=== PATIENT | female | born 1960 | race Caucasian/White ===

== ENCOUNTER 2017-10-17 17:44 | Inpatient (IN) | payer BC ==
[~2017-10-17] VITALS: Ht 152.4 cm; Wt 53.2 kg
[~2017-10-17 17:44] MED LIST: AMLO5TAB2 PO; CALC0.5C9 PO; CALC667C PO; DOLU1TAB PO; EMTR200C4 PO; FERR325T18 PO; LISI5TAB7 PO; METO25TA91 PO; METOPROLOL PO
[2017-10-17 19:50] LABS: MEAN CORPUSCULAR HEMOGLOBIN 32.6 pg (27.0-34.8); MEAN CORPUSCULAR HGB CONC 34.4 g/dL (32.4-35.8); MEAN CORPUSCULAR VOLUME 94.8 fL (80-100); MEAN PLATELET VOLUME 8.6 fL (7.4-10.4); PLATELET COUNT 253 x10^3/uL (130-400); RED BLOOD COUNT 3.52 x10^6/uL (3.82-5.3); RED CELL DISTRIBUTION WIDTH 15.5 % (9.6-15.2)
[2017-10-17 20:00] LABS: ALANINE AMINOTRANSFERASE 15 U/L (12-78); ALBUMIN 3.1 g/dL (3.4-5.0); ANION GAP 15 mmol/L (5-15); CALCIUM 9.1 mg/dL (8.5-10.1); CHLORIDE 91 mmol/L (98-107)
[2017-10-17 20:02] LABS: ALKALINE PHOSPHATASE 98 U/L (45-117); BILIRUBIN,TOTAL 0.3 mg/dL (0.2-1.0); TOTAL PROTEIN 9.1 g/dL (6.4-8.2)
[2017-10-17 20:08] LABS: BASOPHILS % (AUTO) 0 % (0-1); EOSINOPHILS # (AUTO) 0.03 x10^3/uL (0-0.4); EOSINOPHILS % (AUTO) 0 % (1-7); LYMPHOCYTES # (AUTO) 1.19 x10^3/uL (1-3.4); LYMPHOCYTES % (AUTO) 5 % (22-44); MD SCAN; MONOCYTES # (AUTO) 0.18 x10^3/uL (0.2-0.8); MONOCYTES % (AUTO) 1 % (2-9); NEUTROPHILS # (AUTO) 22.96 x10^3/uL (1.8-6.8); NEUTROPHILS % (AUTO) 94 % (42-75)
[2017-10-17] MEDS ORDERED: CIPROFLOXACIN/PMX 400MG/200ML 200 ML ONE (21:22)
[2017-10-17] MEDS ORDERED: METRONIDAZOLE PMX 500MG/100ML 100 ML ONE (21:22)
[2017-10-17] MEDS ORDERED: HYDROmorphone 2 MG/ML, 1ML ONE (21:22)
[2017-10-17] MEDS ORDERED: CIPROFLOXACIN/PMX 400MG/200ML 200 ML IV ONE (21:30)
[2017-10-17] MEDS ORDERED: HYDROmorphone 1 MG/ML, 1ML IVPush PRN (21:30)
[2017-10-17] MEDS ORDERED: METRONIDAZOLE PMX 500MG/100ML 100 ML IV ONE (21:30)
[2017-10-17] MEDS ORDERED: CALC200T3 PO (21:38)
[2017-10-17] MEDS ORDERED: SODIUM CHLORIDE 0.9% 1,000ML IVBOLUS ONE (22:30)
[2017-10-17] MEDS ORDERED: PIPERACILLIN/TAZO/PMX 3.375GM 50 ML IV SCH (23:30)
[2017-10-18] MEDS ORDERED: ONDANSETRON ODT 4 MG PO PRN (00:30)
[2017-10-18] MEDS ORDERED: POLYETHYLENE GLYCOL 17 GM PACKET PO PRN (00:30)
[2017-10-18] MEDS ORDERED: OXYcodone IR 5MG TABLET PO PRN (00:30)
[2017-10-18] MEDS ORDERED: BISACODYL 10 MG SUPP PR PRN (00:30)
[2017-10-18] MEDS ORDERED: ONDANSETRON 2MG/ML, 2ML IVPush PRN (00:30)
[2017-10-18] MEDS ORDERED: DOCUSATE 100 MG CAPSULE PO PRN (00:30)
[2017-10-18] MEDS ORDERED: hydrALAzine 20 MG/ML, 1ML IVPush PRN (00:30)
[2017-10-18] MEDS ORDERED: morphine SULFATE 10 MG/ML, 1ML IVPush PRN (00:30)
[2017-10-18 00:47] LABS: FREE T4 (FREE THYROXINE) 1.4 ng/dL (0.76-1.46); THYROID STIMULATING HORMONE 1.83 mIU/L (0.358-3.740)
[2017-10-18 00:48] LABS: HEMOGLOBIN A1C 5.7 % (4.2-6.3)
[2017-10-18] MEDS: HEPARIN 5,000 UNITS/ML, 1ML SQ SCH ×4 (01:23→19:42)
[2017-10-18] MEDS: ACETAMINOPHEN 325 MG TABLET PO PRN ×4 (01:23→23:35)
[2017-10-18] MEDS: PIPERACILLIN/TAZO 2.25 GM in SODIUM CHLORIDE 0.9% 50 ML IV SCH ×4 (01:23→19:38)
[2017-10-18] MEDS: CALCIUM CARBONATE 500 MG TAB.CHEW PO SCH ×4 (01:24→15:26)
[2017-10-18 01:37] VITALS: BP 141/67
[2017-10-18 02:10] VITALS: BP 128/66
[2017-10-18] MEDS ORDERED: CALCIUM CARBONATE 500 MG TAB.CHEW PO ONE ×2 (02:30)
[2017-10-18 04:20] LABS: MEAN CORPUSCULAR HEMOGLOBIN 31.9 pg (27.0-34.8); MEAN CORPUSCULAR HGB CONC 33.7 g/dL (32.4-35.8); MEAN CORPUSCULAR VOLUME 94.7 fL (80-100); MEAN PLATELET VOLUME 8.5 fL (7.4-10.4); PLATELET COUNT 235 x10^3/uL (130-400); RED BLOOD COUNT 3.28 x10^6/uL (3.82-5.3); RED CELL DISTRIBUTION WIDTH 15.8 % (9.6-15.2)
[2017-10-18 04:27] LABS: CHLORIDE 93 mmol/L (98-107)
[2017-10-18 04:33] LABS: ALANINE AMINOTRANSFERASE 16 U/L (12-78); ALBUMIN 2.5 g/dL (3.4-5.0); ALKALINE PHOSPHATASE 82 U/L (45-117); ANION GAP 14 mmol/L (5-15); BILIRUBIN,TOTAL 0.5 mg/dL (0.2-1.0); CALCIUM 8.5 mg/dL (8.5-10.1); CHOL/HDL RATIO 3.2; CHOLESTEROL, TOTAL 130 mg/dL (140-239); HDL CHOL % 32 % (28-40); HDL CHOLESTEROL (DIRECT) 41 mg/dL (40-60); TOTAL PROTEIN 7.7 g/dL (6.4-8.2); TRIGLYCERIDES 116 mg/dL (50-200); VLDL CHOLESTEROL 23 mg/dL (0-25)
[2017-10-18 04:34] LABS: LDL CHOLESTEROL,CALCULATED 66 mg/dL (54-169); LDL/HDL RATIO 1.6 (0.5-3.0); MD YES
[2017-10-18 04:36] LABS: ANISOCYTOSIS 1+; BAND#(MANUAL) 0.37 x10^3/uL; BANDS%(MANUAL) 2 % (0-7); LYMPH#(MANUAL) 1.84 x10^3/uL (1-3.4); LYMPHS% (MANUAL) 10 % (22-44); MONOS#(MANUAL) 0.92 x10^3/uL (0.3-2.7); MONOS% (MANUAL) 5 % (2-9); SEG#(MANUAL) 15.27 x10^3/uL (1.8-6.8); SEGS% (MANUAL) 83 % (42-75)
[2017-10-18 04:37] LABS: <PLATELET ESTIMATE> ADEQUATE; <PLT MORPHOLOGY> NORMAL PLT MORPH
[2017-10-18 06:50] VITALS: BP 117/61
[2017-10-18] MEDS ORDERED: CALCIUM CARBONATE 500 MG TAB.CHEW PO/NG PRN (07:30)
[2017-10-18] MEDS: DOLUTEGRAVIR HOMEMEDPO SCH (08:22)
[2017-10-18] MEDS: RILPIVIRINE HOMEMEDPO SCH (08:22)
[2017-10-18] MEDS ORDERED: EMTRICITABINE 200 MG CAPSULE PO SCH (09:00)
[2017-10-18 10:56] LABS: MICROSCOPIC INDICATED
[2017-10-18 11:40] LABS: CULTURE INDICATED? NO
[2017-10-18 12:38] VITALS: BP 99/60
[2017-10-18 18:50] VITALS: BP 140/79
[2017-10-19] MEDS: PIPERACILLIN/TAZO 2.25 GM in SODIUM CHLORIDE 0.9% 50 ML IV SCH ×3 (01:27→17:40)
[2017-10-19 01:41] VITALS: BP 109/58
[2017-10-19] MEDS: HEPARIN 5,000 UNITS/ML, 1ML SQ SCH ×3 (03:37→20:39)
[2017-10-19] MEDS: ACETAMINOPHEN 325 MG TABLET PO PRN ×5 (03:37→20:39)
[2017-10-19 04:43] LABS: BASOPHILS # (AUTO) 0.01 x10^3/uL (0-0.1); BASOPHILS % (AUTO) 0 % (0-1); CHLORIDE 100 mmol/L (98-107); EOSINOPHILS % (AUTO) 1 % (1-7); LYMPHOCYTES # (AUTO) 1.33 x10^3/uL (1-3.4); LYMPHOCYTES % (AUTO) 9 % (22-44); MD NO; MEAN CORPUSCULAR HGB CONC 33.5 g/dL (32.4-35.8); MEAN CORPUSCULAR VOLUME 95.5 fL (80-100); MEAN PLATELET VOLUME 8.3 fL (7.4-10.4); MONOCYTES # (AUTO) 1.23 x10^3/uL (0.2-0.8); MONOCYTES % (AUTO) 8 % (2-9); NEUTROPHILS % (AUTO) 83 % (42-75); PLATELET COUNT 227 x10^3/uL (130-400); RED CELL DISTRIBUTION WIDTH 15.4 % (9.6-15.2)
[2017-10-19 04:51] LABS: ALANINE AMINOTRANSFERASE 11 U/L (12-78); ALBUMIN 2.4 g/dL (3.4-5.0); ALKALINE PHOSPHATASE 85 U/L (45-117); ANION GAP 10 mmol/L (5-15); BILIRUBIN,TOTAL 0.5 mg/dL (0.2-1.0); CALCIUM 8.4 mg/dL (8.5-10.1); CREATININE 7.08 mg/dL (0.55-1.02); TOTAL PROTEIN 7.4 g/dL (6.4-8.2)
[2017-10-19 06:45] VITALS: BP 140/81
[2017-10-19] MEDS: CALCIUM CARBONATE 500 MG TAB.CHEW PO SCH ×2 (08:12→17:40)
[2017-10-19] MEDS: DOLUTEGRAVIR HOMEMEDPO SCH (09:00)
[2017-10-19] MEDS ORDERED: EMTRICITABINE 200 MG CAPSULE PO SCH (09:00)
[2017-10-19] MEDS: RILPIVIRINE HOMEMEDPO SCH (09:00)
[2017-10-19 13:09] VITALS: BP 125/73
[2017-10-19 19:10] VITALS: BP 122/69
[2017-10-20] MEDS: ACETAMINOPHEN 325 MG TABLET PO PRN ×3 (00:16→12:20)
[2017-10-20] MEDS: PIPERACILLIN/TAZO 2.25 GM in SODIUM CHLORIDE 0.9% 50 ML IV SCH ×2 (00:17→06:06)
[2017-10-20 01:35] VITALS: BP 123/71
[2017-10-20] MEDS: HEPARIN 5,000 UNITS/ML, 1ML SQ SCH ×2 (04:45→12:28)
[2017-10-20 04:49] LABS: ALBUMIN 2.3 g/dL (3.4-5.0); ANION GAP 9 mmol/L (5-15); CALCIUM 8.8 mg/dL (8.5-10.1); CHLORIDE 98 mmol/L (98-107)
[2017-10-20 04:52] LABS: ALANINE AMINOTRANSFERASE 14 U/L (12-78); ALKALINE PHOSPHATASE 95 U/L (45-117); BILIRUBIN,TOTAL 0.3 mg/dL (0.2-1.0); CREATININE 3.94 mg/dL (0.55-1.02); TOTAL PROTEIN 7.7 g/dL (6.4-8.2)
[2017-10-20 07:07] VITALS: BP 123/76
[2017-10-20] MEDS: DOLUTEGRAVIR HOMEMEDPO SCH (08:20)
[2017-10-20] MEDS: RILPIVIRINE HOMEMEDPO SCH (08:20)
[2017-10-20] MEDS: CALCIUM CARBONATE 500 MG TAB.CHEW PO SCH ×2 (08:21→12:28)
[2017-10-20] MEDS ORDERED: ARANESP 60 MCG/ML **ESRD SQ SCH (10:00)
[2017-10-20] MEDS ORDERED: PIPERACILLIN/TAZO 2.25 GM in SODIUM CHLORIDE 0.9% 50 ML IV SCH (15:00)
[2017-10-20] MEDS ORDERED: CEFD300C37 PO (15:30)
[2017-10-20] MEDS ORDERED: ACET-1600 PO (15:30)
[2017-10-20] MEDS ORDERED: METR500T8 PO (15:30)
== END 2017-10-20 17:00 | disposition home or self-care (01) | DRG 871 ==
LOC: ED 21:06 → EDIP 21:20 → 3NW 10-18 00:22
PROVIDERS: ADMIT Internal Medicine; ATTEND Internal Medicine
PROC: 5A1D70Z Performance of Urinary Filtration, Intermittent, Less than 6 Hours Per Day (ICD-10-PCS; principal; 2017-10-18)
PROC: 5A1D70Z Performance of Urinary Filtration, Intermittent, Less than 6 Hours Per Day (ICD-10-PCS; 2017-10-19)
DX: A41.9 Sepsis, unspecified organism (principal); N18.6 End stage renal disease; K57.20 Diverticulitis of large intestine with perforation and abscess without bleeding; E87.1 Hypo-osmolality and hyponatremia; I13.2 Hypertensive heart and chronic kidney disease with heart failure and with stage 5 chronic kidney disease, or end stage renal disease; E44.0 Moderate protein-calorie malnutrition; I50.42 Chronic combined systolic (congestive) and diastolic (congestive) heart failure; Z99.2 Dependence on renal dialysis; D63.8 Anemia in other chronic diseases classified elsewhere; I27.20 Pulmonary hypertension, unspecified; Z68.22 Body mass index [BMI] 22.0-22.9, adult; Z98.891 History of uterine scar from previous surgery
CPT/HCPCS: 36415; 74176; 80053; 80061; 81001; 83036; 83605; 83690; 83735; 84100; 84439; 84443; 84550; 85025; 86704; 86706; 87040; 87340; 99285; J0744; J0882; J1170; J1644; J2405; J2543; J7030

== ENCOUNTER 2017-12-06 05:25 | Day surgery (SDC) | payer BC ==
[~2017-12-06] VITALS: Ht 154.9 cm; Wt 53.5 kg
[~2017-12-06 05:25] MED LIST changes: +ACET-1600 PO; +CALC200T3 PO; +CEFD300C37 PO; +METR500T8 PO
[2017-12-06] MEDS ORDERED: SODIUM CHLORIDE 0.9% 1,000 ML IV SCH (06:00)
[2017-12-06 06:01] VITALS: BP 183/105
[2017-12-06] MEDS ORDERED: BUPIVACAINE/PF-EPI 0.5% 1:200K ONE (06:48)
[2017-12-06] MEDS ORDERED: PROTAMINE SULFATE 10 MG/ML, 5ML ONE (06:48)
[2017-12-06] MEDS ORDERED: THROMBIN 5,000 UNIT VIAL TP ONE (06:49)
[2017-12-06] MEDS ORDERED: HEPARIN 1,000 UNITS/ML, 10ML ONE (06:49)
[2017-12-06] MEDS ORDERED: EPHEDRINE 50 MG/ML, 1ML ONE (07:15)
[2017-12-06] MEDS ORDERED: PHENYLEPHRINE 10 MG/ML ONE (07:15)
[2017-12-06] MEDS ORDERED: ONDANSETRON 2MG/ML, 2ML ONE (07:15)
[2017-12-06] MEDS ORDERED: METOCLOPRAMIDE 5 MG/ML, 2ML ONE (07:15)
[2017-12-06] MEDS ORDERED: DEXAMETHASONE 4 MG/ML, 1ML ONE (07:15)
[2017-12-06] MEDS ORDERED: PROPOFOL 10 MG/ML, 20ML ONE ×3 (07:15)
[2017-12-06] MEDS ORDERED: LIDOCAINE-MPF 2% ,5ML ONE (07:16)
[2017-12-06] MEDS ORDERED: MIDAZOLAM 1 MG/ML, 2ML ONE (07:17)
[2017-12-06] MEDS ORDERED: FENTANYL PF 100 MCG/2ML ONE ×2 (07:18→08:55)
[2017-12-06] MEDS ORDERED: CEFAZOLIN 1,000 MG ONE (07:50)
[2017-12-06] MEDS ORDERED: FENTANYL PF 100 MCG/2ML IV PRN (08:30)
[2017-12-06] MEDS ORDERED: MIDAZOLAM 1 MG/ML, 2ML IV PRN (08:30)
[2017-12-06] MEDS ORDERED: LABETALOL 5MG/ML, 20ML IV PRN (08:30)
[2017-12-06] MEDS ORDERED: ONDANSETRON 2MG/ML, 2ML IVPush PRN (08:30)
[2017-12-06] MEDS ORDERED: HYDROmorphone 1 MG/ML, 1ML IV PRN (08:30)
[2017-12-06] MEDS ORDERED: MEPERIDINE/PF 25MG/0.5ML IVPush PRN (08:30)
[2017-12-06] MEDS ORDERED: OXYcodone 5 MG/5 ML ORAL.SOL UDC PO PRN (08:30)
[2017-12-06] MEDS ORDERED: OXYcodone 5 MG/5 ML ORAL.SOL UDC ONE (08:55)
[2017-12-06] MEDS ORDERED: PROTAMINE SULFATE 10 MG/ML, 5ML IVPush STA (12:34)
[2017-12-06] MEDS ORDERED: HYDROcodone/APAP 5/325 TABLET ONE (12:38)
[2017-12-06] MEDS ORDERED: HYDROcodone/APAP 5/325 TABLET PO ONE (13:00)
== END 2017-12-06 15:07 | disposition home or self-care (01) ==
LOC: OUT 05:25
PROVIDERS: ATTEND Surgery Vascular Surgery
DX: I12.0 Hypertensive chronic kidney disease with stage 5 chronic kidney disease or end stage renal disease (principal); N18.6 End stage renal disease; J44.9 Chronic obstructive pulmonary disease, unspecified; I50.9 Heart failure, unspecified; Z88.8 Allergy status to other drugs, medicaments and biological substances; Z79.899 Other long term (current) drug therapy
CPT/HCPCS: 36415; 36821; 80047; J0690; J1100; J1644; J2250; J2370; J2405; J2704; J2720; J2765; J3010; J3490; J7030

== ENCOUNTER → 2018-01-24 | Outpatient (CLI) | payer BC ==
[~2018-01-24] VITALS: Ht 154.9 cm; Wt 55.4 kg
[~2018-01-24] MED LIST changes: -AMLO5TAB2 PO; +AMLO5TAB7 PO; +HEPARIN 1,000 UNITS/ML, 30ML ONE; +LANT1000 PO; +PATI8.4P PO; +PROTAMINE SULFATE 10 MG/ML, 5ML ONE
[2018-01-24 10:34] LABS: INTERNATIONAL NORMALIZED RATIO 0.94 (0.93-1.1); PROTHROMBIN TIME 9.8 Seconds (9.6-11.5)
== END | disposition home or self-care (01) ==
LOC: CLISVCS 09:37 → OUT 09:37 → EDSTATUS 14:00
PROVIDERS: ATTEND Surgery Vascular Surgery
DX: N18.6 End stage renal disease (principal); Z53.9 Procedure and treatment not carried out, unspecified reason
CPT/HCPCS: 36415; 80047; 85610; 85730; 93005; J1644; J2720

== ENCOUNTER → 2018-02-07 | Outpatient (CLI) | payer BC ==
[~2018-02-07] MED LIST changes: +FENTANYL PF 100 MCG/2ML ONE; -HEPARIN 1,000 UNITS/ML, 30ML ONE; +MIDAZOLAM 1 MG/ML, 2ML ONE; -PROTAMINE SULFATE 10 MG/ML, 5ML ONE
== END | disposition home or self-care (01) ==
LOC: CLISVCS 08:00 → EDSTATUS 12:15
PROVIDERS: ATTEND Surgery Vascular Surgery
DX: Z02.9 Encounter for administrative examinations, unspecified (principal)
CPT/HCPCS: J2250; J3010

== ENCOUNTER 2018-03-14 08:33 | Day surgery (SDC) | payer BC ==
[~2018-03-14] VITALS: Ht 152.4 cm; Wt 61.0 kg
[~2018-03-14 08:33] MED LIST changes: -FENTANYL PF 100 MCG/2ML ONE; -MIDAZOLAM 1 MG/ML, 2ML ONE
[2018-03-14 10:44] VITALS: BP 175/81
[2018-03-14] MEDS ORDERED: SODIUM CHLORIDE 0.9% 1,000 ML IV SCH (11:21)
[2018-03-14] MEDS ORDERED: HEPARIN 5,000 UNITS/ML, 1ML ONE (12:55)
[2018-03-14] MEDS ORDERED: HEPARIN 1,000 UNITS/ML, 10ML ONE (12:56)
[2018-03-14] MEDS ORDERED: PROTAMINE SULFATE 10 MG/ML, 5ML ONE (12:56)
[2018-03-14] MEDS ORDERED: MIDAZOLAM 1 MG/ML, 2ML ONE (13:00)
[2018-03-14] MEDS ORDERED: FENTANYL PF 100 MCG/2ML ONE ×3 (13:00→14:17)
[2018-03-14] MEDS ORDERED: LIDOCAINE 2% 100MG/5ML SYRINGE ONE (13:44)
[2018-03-14] MEDS ORDERED: CEFAZOLIN 1,000 MG ONE (13:44)
[2018-03-14] MEDS ORDERED: PROPOFOL 10 MG/ML, 20ML ONE (13:44)
[2018-03-14] MEDS ORDERED: ONDANSETRON 2MG/ML, 2ML ONE (13:44)
[2018-03-14] MEDS ORDERED: DEXAMETHASONE 4 MG/ML, 1ML ONE (13:44)
[2018-03-14] MEDS ORDERED: MEPERIDINE/PF 25MG/0.5ML IVPush PRN (14:00)
[2018-03-14] MEDS ORDERED: HYDROmorphone 1 MG/ML, 1ML IV PRN (14:00)
[2018-03-14] MEDS ORDERED: HALOPERIDOL 5 MG/ML IV PRN (14:00)
[2018-03-14] MEDS ORDERED: ACETAMINOPHEN 325 MG TABLET PO PRN (14:00)
[2018-03-14] MEDS ORDERED: LABETALOL 5MG/ML, 20ML IV PRN (14:00)
[2018-03-14] MEDS ORDERED: hydrALAzine 20 MG/ML, 1ML IV PRN (14:00)
[2018-03-14] MEDS ORDERED: OXYcodone 5 MG/5 ML ORAL.SOL UDC ONE ×2 (14:17→14:49)
[2018-03-14] MEDS ORDERED: ACETAMINOPHEN 650 MG/20.3 ML UDC ONE (14:17)
[2018-03-14] MEDS: OXYcodone 5 MG/5 ML ORAL.SOL UDC PO PRN ×2 (14:20→14:50)
[2018-03-14] MEDS: FENTANYL PF 100 MCG/2ML IV PRN ×3 (14:23→14:42)
[2018-03-14] MEDS ORDERED: HYDROmorphone 2 MG/ML, 1ML ONE (14:48)
== END 2018-03-14 18:20 | disposition home or self-care (01) ==
LOC: OUT 08:33
PROVIDERS: ATTEND Surgery Vascular Surgery
DX: I13.2 Hypertensive heart and chronic kidney disease with heart failure and with stage 5 chronic kidney disease, or end stage renal disease (principal); I50.9 Heart failure, unspecified; N18.6 End stage renal disease; B20 Human immunodeficiency virus [HIV] disease; Z88.1 Allergy status to other antibiotic agents; Z88.5 Allergy status to narcotic agent; Z88.8 Allergy status to other drugs, medicaments and biological substances
CPT/HCPCS: 36415; 36821; 80047; J0690; J1100; J1170; J1644; J2405; J2704; J2720; J3010; J7030

== ENCOUNTER 2018-07-11 05:47 | Day surgery (SDC) | payer BC ==
[~2018-07-11] VITALS: Ht 152.4 cm; Wt 68.5 kg
[~2018-07-11 05:47] MED LIST changes: +AMLO-150 PO; -AMLO5TAB7 PO; +METR-90 PO; -METR500T8 PO
[2018-07-11 06:07] VITALS: BP 169/97
[2018-07-11] MEDS ORDERED: SODIUM CHLORIDE 0.9% 1,000 ML IV SCH (06:10)
[2018-07-11] MEDS ORDERED: BUPIVACAINE/PF 0.5% ONE (07:03)
[2018-07-11] MEDS ORDERED: THROMBIN 5,000 UNIT VIAL TP ONE (07:03)
[2018-07-11] MEDS ORDERED: HEPARIN 1,000 UNITS/ML, 10ML ONE (07:03)
[2018-07-11] MEDS ORDERED: PROTAMINE SULFATE 10 MG/ML, 5ML ONE (07:03)
[2018-07-11] MEDS ORDERED: PROMETHAZINE 25 MG/ML, 1ML IV PRN (08:00)
[2018-07-11] MEDS ORDERED: MEPERIDINE/PF 25MG/0.5ML IVPush PRN (08:00)
[2018-07-11] MEDS ORDERED: LABETALOL 5MG/ML, 20ML IV PRN (08:00)
[2018-07-11] MEDS ORDERED: HALOPERIDOL 5 MG/ML IV PRN (08:00)
[2018-07-11] MEDS ORDERED: METOPROLOL 1 MG/ML, 5ML IV PRN (08:00)
[2018-07-11] MEDS ORDERED: hydrALAzine 20 MG/ML, 1ML IV PRN (08:00)
[2018-07-11] MEDS ORDERED: PROCHLORPERAZINE 5 MG/ML, 2ML IV PRN (08:00)
[2018-07-11] MEDS ORDERED: DIPHENHYDRAMINE 50 MG/ML, 1ML IVPush PRN (08:00)
[2018-07-11] MEDS ORDERED: FENTANYL PF 100 MCG/2ML IV PRN (08:00)
[2018-07-11] MEDS ORDERED: CEFAZOLIN 1,000 MG ONE (08:28)
[2018-07-11] MEDS ORDERED: DEXAMETHASONE 4 MG/ML, 1ML ONE (08:28)
[2018-07-11] MEDS ORDERED: ONDANSETRON 2MG/ML, 2ML ONE (08:28)
[2018-07-11] MEDS ORDERED: PROPOFOL 10 MG/ML, 20ML ONE (08:28)
[2018-07-11] MEDS ORDERED: FENTANYL PF 100 MCG/2ML ONE (08:29)
[2018-07-11] MEDS ORDERED: HEPARIN 1,000 UNITS/ML, 10ML DIALYCATH ONE (08:54)
[2018-07-11] MEDS ORDERED: HYDROmorphone 1 MG/ML, 1ML ONE (09:34)
[2018-07-11] MEDS: HYDROmorphone 2 MG/ML, 1ML IVPush PRN ×3 (09:37→09:59)
[2018-07-11] MEDS ORDERED: MEPERIDINE/PF 25MG/ML,1ML ONE (10:05)
[2018-07-11] MEDS ORDERED: HYDROmorphone 2MG TABLET PO ONE (12:30)
[2018-07-11] MEDS ORDERED: HYDROmorphone 2MG TABLET ONE (12:33)
[2018-07-11] MEDS ORDERED: PROTAMINE SULFATE 10 MG/ML, 5ML IVPush ONE (13:00)
== END 2018-07-11 14:35 | disposition home or self-care (01) ==
LOC: OUT 05:47
PROVIDERS: ATTEND Surgery Vascular Surgery
DX: I13.2 Hypertensive heart and chronic kidney disease with heart failure and with stage 5 chronic kidney disease, or end stage renal disease (principal); I50.9 Heart failure, unspecified; N18.6 End stage renal disease; Z88.5 Allergy status to narcotic agent; Z88.8 Allergy status to other drugs, medicaments and biological substances
CPT/HCPCS: 36415; 36821; 80047; J0690; J1100; J1170; J1644; J2175; J2405; J2704; J2720; J3010; J7030; J3490

== ENCOUNTER 2018-12-12 08:50 | Day surgery (SDC) | payer BC, MEDICARE ==
[~2018-12-12] VITALS: Ht 152.4 cm; Wt 70.4 kg
[2018-12-12] MEDS ORDERED: SODIUM CHLORIDE 0.9% 1,000 ML IV SCH (10:38)
[2018-12-12 10:50] VITALS: BP 200/82
[2018-12-12] MEDS ORDERED: FENTANYL PF 100 MCG/2ML ONE ×2 (11:58→13:02)
[2018-12-12] MEDS ORDERED: PROMETHAZINE 25 MG/ML, 1ML IV PRN (12:00)
[2018-12-12] MEDS ORDERED: HALOPERIDOL 5 MG/ML IV PRN (12:00)
[2018-12-12] MEDS ORDERED: hydrALAzine 20 MG/ML, 1ML IV PRN (12:00)
[2018-12-12] MEDS ORDERED: LABETALOL 5MG/ML, 20ML IV PRN (12:00)
[2018-12-12] MEDS ORDERED: HYDROmorphone 2 MG/ML, 1ML IVPush PRN (12:00)
[2018-12-12] MEDS ORDERED: OXYcodone 5 MG/5 ML ORAL.SOL UDC PO PRN (12:00)
[2018-12-12] MEDS ORDERED: METOPROLOL 1 MG/ML, 5ML IV PRN (12:00)
[2018-12-12] MEDS ORDERED: PROCHLORPERAZINE 5 MG/ML, 2ML IV PRN (12:00)
[2018-12-12] MEDS ORDERED: MEPERIDINE/PF 25MG/0.5ML IVPush PRN (12:00)
[2018-12-12] MEDS ORDERED: DIPHENHYDRAMINE 50 MG/ML, 1ML IVPush PRN (12:00)
[2018-12-12] MEDS ORDERED: PROPOFOL 10 MG/ML, 20ML ONE (12:08)
[2018-12-12] MEDS ORDERED: DEXAMETHASONE 4 MG/ML, 1ML ONE (12:08)
[2018-12-12] MEDS ORDERED: ONDANSETRON 2MG/ML, 2ML ONE (12:08)
[2018-12-12] MEDS ORDERED: CEFAZOLIN 1,000 MG ONE (12:08)
[2018-12-12] MEDS: FENTANYL PF 100 MCG/2ML IV PRN ×2 (13:04→13:19)
[2018-12-12 13:25] LABS: INTERNATIONAL NORMALIZED RATIO 0.92 (0.93-1.1); PROTHROMBIN TIME 9.7 Seconds (9.6-11.5)
[2018-12-12 13:26] LABS: BASOPHILS # (AUTO) 0.04 x10^3/uL (0-0.1); BASOPHILS % (AUTO) 1 % (0-1); EOSINOPHILS # (AUTO) 0.19 x10^3/uL (0-0.4); EOSINOPHILS % (AUTO) 3 % (1-7); LYMPHOCYTES # (AUTO) 1.85 x10^3/uL (1-3.4); LYMPHOCYTES % (AUTO) 23 % (22-44); MD NO; MEAN CORPUSCULAR HEMOGLOBIN 33.5 pg (27.0-34.8); MEAN CORPUSCULAR HGB CONC 32.9 g/dL (32.4-35.8); MEAN CORPUSCULAR VOLUME 101.8 fL (80-100); MONOCYTES # (AUTO) 0.39 x10^3/uL (0.2-0.8); MONOCYTES % (AUTO) 5 % (2-9); NEUTROPHILS # (AUTO) 5.41 x10^3/uL (1.8-6.8); NEUTROPHILS % (AUTO) 69 % (42-75); PLATELET COUNT 159 x10^3/uL (130-400); RED CELL DISTRIBUTION WIDTH 13.4 % (9.6-15.2)
== END 2018-12-12 16:20 | disposition home or self-care (01) ==
LOC: OUT 08:50
PROVIDERS: ATTEND Surgery Vascular Surgery
DX: T82.590A Other mechanical complication of surgically created arteriovenous fistula, initial encounter (principal); I13.2 Hypertensive heart and chronic kidney disease with heart failure and with stage 5 chronic kidney disease, or end stage renal disease; N18.6 End stage renal disease; I50.9 Heart failure, unspecified; Z88.5 Allergy status to narcotic agent; Z88.8 Allergy status to other drugs, medicaments and biological substances; Y84.8 Other medical procedures as the cause of abnormal reaction of the patient, or of later complication, without mention of misadventure at the time of the procedure
CPT/HCPCS: 36415; 36832; 80047; 85025; 85610; 85730; 93005; J0690; J1100; J2405; J2704; J3010

== ENCOUNTER → 2020-07-03 | Outpatient (CLI) | payer MEDICARE, BC ==
[~2020-07-03] MED LIST changes: +CINA30TA2 PO; +METO25TA35 PO
[2020-07-03 16:21] LABS: BASOPHILS % (AUTO) 1 % (0-1); EOSINOPHILS % (AUTO) 2 % (1-7); LYMPHOCYTES % (AUTO) 20 % (22-44); MEAN CORPUSCULAR HEMOGLOBIN 32.7 pg (27.0-34.8); MEAN CORPUSCULAR HGB CONC 33.1 g/dL (32.4-35.8); MEAN PLATELET VOLUME 8.8 fL (7.4-10.4); MONOCYTES % (AUTO) 9 % (2-9); NEUTROPHILS % (AUTO) 69 % (42-75); PLATELET COUNT 227 x10^3/uL (130-400); RED BLOOD COUNT 4.11 x10^6/uL (3.82-5.3); RED CELL DISTRIBUTION WIDTH 15.6 % (9.6-15.2)
[2020-07-03 16:22] LABS: MD NO
[2020-07-03 16:31] LABS: ALANINE AMINOTRANSFERASE 24 U/L (12-78); ALBUMIN 3.7 g/dL (3.4-5.0); ANION GAP 10 mmol/L (5-15); CALCIUM 9.6 mg/dL (8.5-10.1); CHLORIDE 99 mmol/L (98-107); CREATININE 6.81 mg/dL (0.55-1.02)
[2020-07-03 16:32] LABS: INTERNATIONAL NORMALIZED RATIO 0.97 (0.93-1.1); PROTHROMBIN TIME 10.4 Seconds (9.6-11.5)
[2020-07-03 16:34] LABS: ALKALINE PHOSPHATASE 144 U/L (45-117); BILIRUBIN,TOTAL 0.6 mg/dL (0.2-1.0); TOTAL PROTEIN 8.8 g/dL (6.4-8.2)
== END | disposition home or self-care (01) ==
LOC: STAR 14:41
PROVIDERS: ATTEND Surgery Vascular Surgery
DX: Z01.818 Encounter for other preprocedural examination (principal); I21.3 ST elevation (STEMI) myocardial infarction of unspecified site
CPT/HCPCS: 36415; 80053; 85025; 85610; 85730; 93005

== ENCOUNTER 2020-07-08 05:54 | Day surgery (SDC) | payer MEDICARE, BC ==
[2020-07-03 16:00] VITALS: BP 150/75
[~2020-07-08] VITALS: Ht 154.9 cm; Wt 75.5 kg
[2020-07-08] MEDS ORDERED: CHLORHEXIDINE 15 ML UDC MM ONE (06:30)
[2020-07-08] MEDS ORDERED: SODIUM CHLORIDE 0.9% 1,000 ML IV SCH (06:30)
[2020-07-08 06:34] VITALS: BP 150/75
[2020-07-08] MEDS ORDERED: HEPARIN 1,000 UNITS/ML, 10ML ONE (06:43)
[2020-07-08] MEDS ORDERED: BUPIVACAINE/PF 0.5% ONE (06:43)
[2020-07-08] MEDS ORDERED: FENTANYL PF 100 MCG/2ML ONE ×2 (07:07→08:08)
[2020-07-08] MEDS ORDERED: LIDOCAINE-MPF 2% ,5ML ONE (07:07)
[2020-07-08] MEDS ORDERED: PROPOFOL 10 MG/ML, 20ML ONE (07:30)
[2020-07-08] MEDS ORDERED: ACETAMINOPHEN 325 MG TABLET PO PRN (07:30)
[2020-07-08] MEDS ORDERED: hydrALAzine 20 MG/ML, 1ML IV PRN (07:30)
[2020-07-08] MEDS ORDERED: DEXAMETHASONE 4 MG/ML, 1ML ONE (07:30)
[2020-07-08] MEDS ORDERED: LABETALOL 5MG/ML, 20ML IV PRN (07:30)
[2020-07-08] MEDS ORDERED: ONDANSETRON 2MG/ML, 2ML IVPush PRN (07:30)
[2020-07-08] MEDS ORDERED: ONDANSETRON 2MG/ML, 2ML ONE (07:30)
[2020-07-08] MEDS ORDERED: EPHEDRINE 50 MG/ML, 1ML IVPush PRN (07:30)
[2020-07-08] MEDS ORDERED: FENTANYL PF 100 MCG/2ML IV PRN (07:30)
[2020-07-08] MEDS ORDERED: CEFAZOLIN 1,000 MG ONE (07:30)
[2020-07-08] MEDS ORDERED: HYDROmorphone 1 MG/ML, 1ML INJ IVPush PRN (07:30)
[2020-07-08] MEDS ORDERED: OXYcodone 5 MG/5 ML ORAL.SOL UDC PO PRN (07:30)
[2020-07-08] MEDS ORDERED: PROMETHAZINE 25 MG/ML, 1ML IVPush PRN (07:30)
[2020-07-08] MEDS ORDERED: TRAM50TA2 PO (07:41)
[2020-07-08] MEDS ORDERED: EPHEDRINE 50 MG/ML, 1ML ONE (08:14)
[2020-07-08] MEDS ORDERED: HYDROmorphone 2MG TABLET PO PRN (10:00)
[2020-07-08] MEDS ORDERED: ACETAMINOPHEN 650 MG/20.3 ML UDC ONE (10:01)
== END 2020-07-08 11:45 | disposition home or self-care (01) ==
LOC: OUT 05:54
PROVIDERS: ATTEND Surgery Vascular Surgery
DX: T82.898A Other specified complication of vascular prosthetic devices, implants and grafts, initial encounter (principal); I13.2 Hypertensive heart and chronic kidney disease with heart failure and with stage 5 chronic kidney disease, or end stage renal disease; N18.6 End stage renal disease; I50.9 Heart failure, unspecified; Z79.899 Other long term (current) drug therapy; Z88.8 Allergy status to other drugs, medicaments and biological substances; Y83.8 Other surgical procedures as the cause of abnormal reaction of the patient, or of later complication, without mention of misadventure at the time of the procedure
CPT/HCPCS: 36838; J0690; J1100; J1644; J2405; J2704; J3010; J7030